=== PATIENT | male | born 1970 | race Hispanic/Latino ===

== ENCOUNTER 2016-12-29 16:33 | Inpatient (IN) | payer MEDICAID ==
[2016-12-29] MEDS ORDERED: Aspirin 325 mg EC Tablets PO ONE (16:42)
--- NOTE | 2016-12-29 16:44 | ED PDOC ---
Arrival/HPI - General Chief Complaint: Chest Pain Time Seen by Provider: 12/29/16 16:40 Historian: Patient - History of Present Illness Narrative History of Present Illness (Text): The patient is a 46yo male, no known past medical history, no use of blood thinners, presents to the emergency department for evaluation of sudden onset chest pain starting 15 minutes prior to arrival with associated cold sweats. Patient reports he was climbing up stairs at this facility when he felt a mid- sternal chest pain. Patient denies any radiation of the pain, shortness of breath or difficulty breathing. Patient offers no additional complaints. PCP: Provider in [place] Time/Duration: Prior to Arrival Symptom Onset: Sudden Symptom Course: Unchanged Context: Walking Past Medical History - Provider Review Nursing Documentation Reviewed: Yes - Past History Past History: No Previous - Infectious Disease Hx of Infectious Diseases: None - Psychiatric Hx Substance Use: No - Anesthesia Hx Anesthesia: No Family/Social History - Physician Review Nursing Documentation Reviewed: Yes Family/Social History: No Known Family HX Smoking Status: Heavy Smoker > 10 Cigarettes Daily Hx Alcohol Use: Yes Frequency of alcohol use: Socially Hx Substance Use: No Allergies/Home Meds Allergies/Adverse Reactions: Allergies No Known Allergies Allergy (Verified 12/29/16 16:35) Home Medications: Home Meds Medication Instructions Recorded Confirmed No Known Home Med 12/29/16 12/29/16 Review of Systems - Physician Review All systems were reviewed & negative as marked: Yes - Review of Systems Respiratory: absent: SOB, Other (difficulty breathing) Cardiovascular: Chest Pain Physical Exam Vital Signs Reviewed: Yes Vital Signs Temp Pulse Resp BP Pulse Ox 12/29/16 18:40 72 17 95 12/29/16 18:36 71 16 120/72 95 12/29/16 18:30 79 95 12/29/16 18:27 65 21 119/84 96 12/29/16 18:20 76 22 95 12/29/16 18:17 131/81 95 12/29/16 18:12 71 16 131/81 97 12/29/16 16:45 97.8 F 74 18 135/89 100 Temperature: Afebrile Blood Pressure: Normal Pulse: Regular Respiratory Rate: Normal Appearance: Positive for: Well-Appearing, Non-Toxic, Comfortable Pain Distress: None Mental Status: Positive for: Alert and Oriented X 3 - Systems Exam Head: Present: Atraumatic, Normocephalic Pupils: Present: PERRL Extroacular Muscles: Present: EOMI Conjunctiva: Present: Normal Mouth: Present: Moist Mucous Membranes Neck: Present: Normal Range of Motion Respiratory/Chest: Present: Clear to Auscultation, Good Air Exchange. No: Respiratory Distress, Accessory Muscle Use Cardiovascular: Present: Regular Rate and Rhythm, Normal S1, S2. No: Murmurs Abdomen: Present: Normal Bowel Sounds. No: Tenderness, Distention, Peritoneal Signs Back: Present: Normal Inspection Upper Extremity: Present: Normal Inspection. No: Cyanosis, Edema Lower Extremity: Present: Normal Inspection. No: Edema Neurological: Present: GCS=15, CN II-XII Intact, Speech Normal Skin: Present: Warm, Dry, Normal Color, Diaphoretic. No: Rashes Psychiatric: Present: Alert, Oriented x 3, Normal Insight, Normal Concentration Medical Decision Making ED Course and Treatment: Impression: STEMI based on EKG Differential Diagnosis included but are not limited to: Plan: -- Labs -- CXR -- EKG -- Reassess and disposition Progress Notes: 12/29/16 16:38 Code Heart called; consult placed with stitch separator manager decision support. 12/29/16 16:43 Heparin bolus given Plavix 600 Aspirin 325 mg - Critical Care Critical Care Minutes: 30 minutes Critical Care Time: Excluding Proc Time - Lab Interpretations Lab Results: 12/29/16 16:40 12/29/16 16:40 Lab Results 12/29/16 17:00: Blood Type Confirm A POSITIVE 12/29/16 16:40: Blood Type A POSITIVE, Antibody Screen Negative, BBK History Checked No verified bt 12/29/16 16:40: Sodium 140, Potassium 3.7, Chloride 104, Carbon Dioxide 26, Anion Gap 14, BUN 19, Creatinine 1.1, Est GFR ( Amer) > 60, Est GFR (Non- Af Amer) > 60, Random Glucose 103, Calcium 9.7, Total Bilirubin 0.9, AST 33, ALT 74 H, Alkaline Phosphatase 63, Lactate Dehydrogenase 332 L, Total Creatine Kinase 69, Troponin I < 0.01, Total Protein 7.6, Albumin 4.5, Globulin 3.1, Albumin/Globulin Ratio 1.5 12/29/16 16:40: PT 11.0, INR 1.02, APTT 24.7 12/29/16 16:40: WBC 8.0, RBC 4.99, Hgb 16.5, Hct 45.5, MCV 91.2, MCH 33.1, MCHC 36.3, RDW 12.0, Plt Count 203, MPV 10.3, Gran % 52.1, Lymph % (Auto) 38.7 H, [place] % (Auto) 7.3 H, Eos % (Auto) 1.8, Baso % (Auto) 0.1, Gran # 4.15, Lymph # 3.1, [place] # 0.6, Eos # 0.1, Baso # 0.01 - RAD Interpretation Radiology Orders: 12/29/16 16:43 CHEST PORTABLE [RAD] Stat - EKG Interpretation EKG Interpretation (Text): Sinus rhythms Rate of 66 ST Elevation 2,3 AFV and V5 V6 ST Depression V1 V2 Interpreted by ED Physician: Yes - Medication Orders Current Medication Orders: Alprazolam (Xanax) 0.25 mg PO BID PRN PRN Reason: Anxiety Stop: 01/05/17 18:13 Aspirin (Ecotrin) 81 mg PO DAILY [facility] Atorvastatin Calcium (Lipitor) 80 mg PO DIN [facility] Clopidogrel Bisulfate (Plavix) 75 mg PO DAILY [facility] Docusate Sodium (Colace) 100 mg PO BID [facility] Sodium Chloride (Sodium Chloride 0.9%) 1,000 mls @ 100 mls/hr IV .Q10H AMBROSE Stop: 12/30/16 04:14 Last Admin: 12/29/16 19:05 Dose: 100 mls/hr Eptifibatide (Integrilin) 75 mg in 100 mls @ 13.445 mls/hr IV .Q7H27M AMBROSE; 2 MCG/KG/MIN PRN Reason: Protocol Stop: 12/30/16 12:49 Metoprolol Tartrate (Lopressor) 25 mg PO Q12H AMBROSE Last Admin: 12/29/16 19:15 Dose: 25 mg Zolpidem Tartrate (Ambien) 5 mg PO HS PRN PRN Reason: Insomnia Discontinued Medications Aspirin (Ecotrin) Confirm Administered Dose 325 mg PO .STK-MED ONE Stop: 12/29/16 16:43 Last Admin: 12/29/16 16:58 Dose: Aspirin (Aspirin) 325 mg PO STAT STA Stop: 12/29/16 16:50 Last Admin: 12/29/16 16:57 Dose: 325 mg Aspirin (Ecotrin) 325 mg PO STAT STA Stop: 12/29/16 16:50 Last Admin: 12/29/16 16:58 Dose: Atropine Sulfate (Atropine) Confirm Administered Dose 1 mg .ROUTE .STK-MED ONE Stop: 12/29/16 16:48 Last Admin: 12/29/16 18:25 Dose: Clopidogrel Bisulfate (Plavix) 300 mg PO STAT STA Stop: 12/29/16 16:50 Last Admin: 12/29/16 16:58 Dose: Clopidogrel Bisulfate (Plavix) 600 mg PO STAT STA Stop: 12/29/16 16:50 Last Admin: 12/29/16 16:56 Dose: 600 mg Eptifibatide (Integrilin Bolus) Confirm Administered Dose 40 mg IVP .STK-MED ONE Stop: 12/29/16 17:19 Last Admin: 12/29/16 17:19 Dose: 31.6 mg Comments: two boluses of 7.9ml integrillin given at 1719 and 1729 Fentanyl (Fentanyl) Confirm Administered Dose 100 mcg .ROUTE .STK-MED ONE Stop: 12/29/16 17:02 Last Admin: 12/29/16 17:07 Dose: 100 mcg Comments: 50mcgs at 507p by dr. ma 50mcgs at 530p by magan sparrow rn Heparin Sodium (Porcine) (Heparin) Confirm Administered Dose 5,000 units .ROUTE .STK-MED ONE Stop: 12/29/16 16:44 Last Admin: 12/29/16 16:58 Dose: Heparin Sodium (Porcine) (Heparin) 5,000 units IVP STAT STA PRN Reason: Protocol Stop: 12/29/16 16:50 Last Admin: 12/29/16 16:57 Dose: 5,000 units Heparin Sodium (Porcine) (Heparin) 5,000 units SC STAT STA PRN Reason: Protocol Stop: 12/29/16 16:50 Last Admin: 12/29/16 16:58 Dose: Heparin Sodium (Porcine) (Heparin) Confirm Administered Dose 10,000 units .ROUTE .STK-MED ONE Stop: 12/29/16 17:04 Last Admin: 12/29/16 17:14 Dose: 2,000 units Comments: 1714pm 1000units iv by magan sparrow rn 1752 1000units iv by magan sparrow rn Heparin Sodium (Porcine) (Heparin) Confirm Administered Dose 10,000 units .ROUTE .STK-MED ONE Stop: 12/29/16 17:54 Heparin Sodium (Porcine) (Heparin 1000 Units/500 Ml Ns) Confirm Administered Dose 1,500 mls @ ud IV .STK-MED ONE Stop: 12/29/16 16:45 Nitroglycerin/Dextrose (Nitroglycerin 50 Mg/250 Ml D5w) Confirm Administered Dose 50 mg in 250 mls @ ud IV .STK-MED ONE Stop: 12/29/16 16:51 Last Admin: 12/29/16 18:31 Dose: Eptifibatide (Integrilin) Confirm Administered Dose 75 mg in 100 mls @ ud IV .STK-MED ONE Stop: 12/29/16 17:20 Last Admin: 12/29/16 17:19 Dose: 75 mg Comments: 13.8mls/hr Eptifibatide (Integrilin) 0.75 mg in 1 mls @ 7 mls/hr IV .Q9M AMBROSE PRN Reason: Protocol Eptifibatide (Integrilin) 75 mg in 100 mls @ 6.722 mls/hr IV .[id number] AMBROSE; 1 MCG/KG/MIN PRN Reason: Protocol Stop: 12/30/16 18:49 Iodixanol (Visipaque 320 Mg/Ml 100 Ml) Confirm Administered Dose 100 ml IV .STK- MED ONE Stop: 12/29/16 16:51 Iodixanol (Visipaque) Confirm Administered Dose 150 ml IV .STK-MED ONE Stop: 12/29/16 16:51 Iodixanol (Visipaque 320 Mg/Ml 200 Ml) Confirm Administered Dose 200 ml IV .STK- MED ONE Stop: 12/29/16 16:51 Iohexol (Omnipaque 350mg/Ml 50 Ml) Confirm Administered Dose 50 ml .ROUTE .STK- MED ONE Stop: 12/29/16 16:46 Iohexol (Omnipaque 350 100 Ml) Confirm Administered Dose 350 mg .ROUTE .STK-MED ONE Stop: 12/29/16 16:46 Iohexol (Omnipaque 350 150 Ml) Confirm Administered Dose 150 ml .ROUTE .STK-MED ONE Stop: 12/29/16 16:46 Lidocaine HCl (Lidocaine 2% 20ml Vial) Confirm Administered Dose 20 ml .ROUTE .STK-MED ONE Stop: 12/29/16 16:54 Last Admin: 12/29/16 17:08 Dose: 8 ml Comments: to right groin Midazolam HCl (Versed Inj) Confirm Administered Dose 2 mg .ROUTE .STK-MED ONE Stop: 12/29/16 17:02 Last Admin: 12/29/16 17:06 Dose: 2 mg Comments: 2mg given by dr ma at 1706 Phenylephrine HCl (Phenylephrine Inj) Confirm Administered Dose 10 mg .ROUTE .STK-MED ONE Stop: 12/29/16 16:50 Last Admin: 12/29/16 18:31 Dose: - Scribe Statement The provider has reviewed the documentation as recorded by the Cordell Lo Provider Cordell Attestation: All medical record entries made by the Cordell were at my direction and personally dictated by me. I have reviewed the chart and agree that the record accurately reflects my personal performance of the history, physical exam, medical decision making, and the department course for this patient. I have also personally directed, reviewed, and agree with the discharge instructions and disposition. Disposition/Present on Arrival - Present on Arrival Any Indicators Present on Arrival: No History of DVT/PE: No History of Uncontrolled Diabetes: No Urinary Catheter: No History of Decub. Ulcer: No History Surgical Site Infection Following: None - Disposition Have Diagnosis and Disposition been Completed?: Yes Diagnosis: STEMI (ST elevation myocardial infarction) Disposition: HOSPITALIZED Disposition Time: 16:38 Patient Plan: Admission Condition: CRITICAL
[2016-12-29] MEDS ORDERED: Iohexol 350mgl/ml 50 ML ONE (16:45)
[2016-12-29] MEDS ORDERED: Iohexol 350 MG/100 ML VIAL ONE (16:45)
[2016-12-29] MEDS ORDERED: Phenylephrine 10 mg/ml Inj ONE (16:49)
[2016-12-29] MEDS ORDERED: Aspirin 325 mg EC Tablets PO STA (16:49)
[2016-12-29] MEDS ORDERED: Iodixanol 320 mg/ml 150 ml Bottle IV ONE (16:50)
[2016-12-29] MEDS ORDERED: Nitroglycerin 50mg in D5W 50 MG/250 ML BOTTLE IV ONE (16:50)
[2016-12-29] MEDS ORDERED: Iodixanol 320 MG/ML 200 ML BOTTLE IV ONE (16:50)
[2016-12-29] MEDS ORDERED: Iodixanol 320 MG/ML 100 ML BOTTLE IV ONE (16:50)
[2016-12-29 16:52] LABS: BASO # 0.01 K/mm3 (0.0-2.0); BASO % 0.1 % (0.0-3.0); EOS # 0.1 (0.0-0.7); EOS % 1.8 % (1.5-5.0); GRAN # 4.15 (1.4-6.5); GRAN % 52.1 % (50.0-68.0); HEMOGLOBIN 16.5 gm/dL (14.0-18.0); LYMPH # 3.1 (1.2-3.4); LYMPH % 38.7 % (22.0-35.0); MEAN CELL VOLUME 91.2 fL (80.0-105.0); MEAN CORPUSCULAR HEMOGLOBIN 33.1 pg (25.0-35.0); MEAN CORPUSCULAR HGB CONC 36.3 g/dl (31.0-37.0); MEAN PLATELET VOLUME 10.3 fl (7.0-11.0); MONO # 0.6 (0.1-0.6); MONO % 7.3 % (1.0-6.0); PLATELET COUNT 203 10^3/uL (120.0-450.0); RBC 4.99 10^6/uL (3.5-6.1)
[2016-12-29] MEDS ORDERED: Lidocaine 2% Inj (20ml) ONE (16:53)
[2016-12-29 16:56] LABS: ALB/GLOB RATIO 1.5 (1.1-1.8); ALBUMIN 4.5 g/dL (3.0-4.8); ALT/SGPT 74 U/L (7-56); AST/SGOT 33 U/L (15-59); BLOOD UREA NITROGEN 19 mg/dL (7-21); CALCIUM 9.7 mg/dL (8.4-10.5); GFR AFRICAN-AMERICAN > 60; GFR NON-AFRICAN AMERICAN > 60
[2016-12-29 16:57] LABS: INR 1.02 (0.93-1.08); PARTIAL THROMBOPLASTIN TIME 24.7 Seconds (23.7-30.8)
[2016-12-29] MEDS ORDERED: Midazolam 2 MG/2 ML VIAL ONE (17:01)
[2016-12-29 17:08] LABS: TROPONIN I < 0.01 ng/mL
[2016-12-29] MEDS ORDERED: Eptifibatide 20 mg/10mL Inj IVP ONE (17:18)
[2016-12-29] MEDS ORDERED: Eptifibatide 0.75 mg/ml 75 MG/100 ML BOTTLE IV ONE (17:19)
--- NOTE | 2016-12-29 17:23 | RAD ---
HISTORY: chest pain COMPARISON: No prior. FINDINGS: LUNGS: The lungs are well inflated and clear. PLEURA: No significant pleural effusion identified, no pneumothorax apparent. CARDIOVASCULAR: Normal. OSSEOUS STRUCTURES: No significant abnormalities. VISUALIZED UPPER ABDOMEN: Normal. OTHER FINDINGS: None. IMPRESSION: No active pulmonary disease.
[2016-12-29] MEDS ORDERED: Eptifibatide 0.75 mg/ml 100 ML IV SCH (18:12)
[2016-12-29] MEDS ORDERED: Sodium Chloride 0.9% 1,000 ML IV SCH (18:15)
--- NOTE | 2016-12-29 18:29 | CP.CCUPN ---
CCU Subjective - Physician Review Events Since Last Encounter (Free Text): 12/29/16 18:24 46 y/o M who presented to the ER with crushing CP that came upon while he was at rest at work. He felt diaphoretic with chest heaviness and called for EMS. Upon EMS arrival they were hesitant to bring him to the ER in the likelyhood that this was GERD. In the ER he was evaluated and found to have STEMI and was rushed to the label fuser tender to meet baloon time. Given Plavix, asprin . CCU Objective - Physical Exam Head: Positive for: Atraumatic, Normocephalic Pupils: Positive for: PERRL Extroacular Muscles: Positive for: EOMI Conjunctiva: Positive for: Normal Mouth: Positive for: Moist Mucous Membranes Neck: Positive for: Normal Range of Motion Respiratory/Chest: Positive for: Clear to Auscultation, Good Air Exchange. Negative for: Respiratory Distress, Accessory Muscle Use Cardiovascular: Positive for: Regular Rate and Rhythm, Normal S1, S2. Negative for: Murmurs Abdomen: Positive for: Normal Bowel Sounds. Negative for: Tenderness, Distention, Peritoneal Signs Back: Positive for: Normal Inspection Upper Extremity: Positive for: Normal Inspection. Negative for: Cyanosis, Edema Lower Extremity: Positive for: Normal Inspection. Negative for: Edema Neurological: Positive for: GCS=15, CN II-XII Intact, Speech Normal Skin: Positive for: Warm, Dry, Normal Color, Diaphoretic. Negative for: Rashes Psychiatric: Positive for: Alert, Oriented x 3, Normal Insight, Normal Concentration - Medications Active Medications: Active Medications Generic Name Dose Route Start Last Admin Trade Name Rufinoq PRN Reason Stop Dose Admin Alprazolam 0.25 mg 12/29/16 18:12 Xanax PO 01/05/17 18:13 BID PRN Anxiety Aspirin 81 mg 12/30/16 10:00 Ecotrin PO DAILY [facility] Atorvastatin Calcium 80 mg 12/30/16 17:00 Lipitor PO DIN [facility] Clopidogrel Bisulfate 75 mg 12/30/16 10:00 Plavix PO DAILY [facility] Docusate Sodium 100 mg 12/30/16 10:00 Colace PO BID [facility] Eptifibatide 100 mls @ 0 mls/hr 12/29/16 18:12 Integrilin IV 12/30/16 12:13 .Q0M AMBROSE Protocol 1 MCG/KG/MIN Sodium Chloride 1,000 mls @ 100 mls/hr 12/29/16 18:15 Sodium Chloride 0.9% IV 12/30/16 04:14 .Q10H AMBROSE Metoprolol Tartrate 25 mg 12/29/16 18:15 Lopressor PO Q12H AMBROSE Zolpidem Tartrate 5 mg 12/29/16 22:00 Ambien PO HS PRN Insomnia Review of Systems - EENT Eyes: UNREMARKABLE Nose/Mouth/Throat: UNREMARKABLE - Cardiovascular Cardiovascular: UNREMARKABLE - Respiratory Respiratory: UNREMARKABLE - Gastrointestinal Gastrointestinal: UNREMARKABLE - Genitourinary Genitourinary: UNREMARKABLE - Musculoskeletal Musculoskeletal: UNREMARKABLE - Neurological Neurological: UNREMARKABLE Critical Care Progress Note - Ventilator Checklist PUD Prophalyxis: Yes DVT Prophylaxis: Yes Oral Care with Chlorhexidine Gluconate {CHG}: Yes Assessment/Plan - Assessment and Plan (Free Text) Assessment: 46 y/o w / STEMI S/P Cardiac Cath . 2 HIRAM in CIRC. Apparently found to have a thrombus per cardiology. Asprin, Plavix given. Integrelin started on protocol. Cp resolved. Does have family history of cardiac disease at early age 40's 20pk year smoking history , ADRIANA and possible HTN noted. High stress at work. Needs ECHO, B blockers, AceI, Asprin, Plavix, Statin . R groin check. F/U w/ Cardiology. cc time 65 min
[2016-12-29] MEDS ORDERED: Eptifibatide 0.75 mg/ml 75 MG/100 ML BOTTLE IV SCH (18:48)
--- NOTE | 2016-12-29 18:49 | CP.PCM.HP ---
<Jimenez Raymond - Last Filed: 12/29/16 18:55> History of Present Illness - History of Present Illness History of Present Illness: 46 M with no significant pmh presents to the ED with chest pain. As per & coworkers the pain first started when he was at work. He denies doing any extraneous activity at work. He looked very pale and diaphoretic and they decided to call the EMS. He states that the pain radiates to his L arm and is 10 /10 in severity. He also c/o some nausea during the episode but denies any vomiting. He denies any fever, chills, wu, dizziness, palpitations, shortnes of breath, abd pain, +N, no vomiting, urinary or bm changes. PMHx: none PSHx: none Allergies: none Social: 20 pack year smoking history, denies illicit drug use, ETOH use Family Hx: father [place] in 30s, both brothers past MIs Present on Admission - Present on Admission Any Indicators Present on Admission: No Review of Systems - Review of Systems Review of Systems: Please see HPI Past Patient History - Infectious Disease Hx of Infectious Diseases: None - Past Social History Smoking Status: Heavy Smoker > 10 Cigarettes Daily - PSYCHIATRIC Hx Substance Use: No - SURGICAL HISTORY Hx Surgeries: No - ANESTHESIA Hx Anesthesia: No Meds Allergies/Adverse Reactions: Allergies Allergy/AdvReac Type Severity Reaction Status Date / Time No Known Allergies Allergy Verified 12/29/16 16:35 Physical Exam - Head Exam Head Exam: ATRAUMATIC, NORMAL INSPECTION - Eye Exam Eye Exam: EOMI, Normal appearance - ENT Exam ENT Exam: Mucous Membranes Moist - Neck Exam Neck exam: Positive for: Normal Inspection. Negative for: Thyromegaly - Respiratory Exam Respiratory Exam: Accessory Muscle Use, NORMAL BREATHING PATTERN. absent: Rales , Rhonchi, Wheezes - Cardiovascular Exam Cardiovascular Exam: REGULAR RHYTHM, +S1, +S2 - GI/Abdominal Exam GI & Abdominal Exam: Normal Bowel Sounds, Soft. absent: Rebound, Rigid - Extremities Exam Extremities exam: Positive for: normal inspection. Negative for: pedal edema - Neurological Exam Neurological exam: Alert, CN II-XII Intact, Oriented x3 - Psychiatric Exam Psychiatric exam: Normal Affect, Normal Mood - Skin Skin Exam: Normal Color, Warm Results - Vital Signs Recent Vital Signs: Last Vital Signs Temp 97.8 F 12/29/16 16:45 Pulse 74 12/29/16 16:45 Resp 18 12/29/16 16:45 BP 135/89 12/29/16 16:45 Pulse Ox 100 12/29/16 16:45 - Labs Result Diagrams: 12/29/16 16:40 12/29/16 16:40 Assessment & Plan - Assessment and Plan (Free Text) Assessment: Patient is a 46 yo male with no significant pmh presents to the ED with chest pain found to have inf wall STEMI s/p cardiac cath POD 0. Plan: 1.Chest pain: - Received aspirin 325mg, Plavix 600mg, and heparin 5000 units in the ED - Patient went to cardiac lab scientist- 2 HIRAM in CIRC were placed - Started aspirin 81mg daily, and Plavix 75mg daily, Metoprolol 25mg BID - Started Lipitor 80mg daily - NS @ [address] Enriqueta uBtt <Bryn Pang - Last Filed: 12/29/16 20:17> Results - Vital Signs Recent Vital Signs: Last Vital Signs Temp 97.8 F 12/29/16 16:45 Pulse 68 12/29/16 20:00 Resp 16 12/29/16 20:00 BP 118/81 12/29/16 19:51 Pulse Ox 94 L 12/29/16 20:00 - Labs Result Diagrams: 12/29/16 16:40 12/29/16 16:40 Attending/Attestation - Attestation I have personally seen and examined this patient.: Yes I have fully participated in the care of the patient.: Yes I have reviewed all pertinent clinical information: Yes Notes (Text): 12/29/16 20:16 Patient was seen when he was in bed # 5 in the ICU. Agree with history, physical examination, assessment and plan.
[2016-12-29] MEDS ORDERED: EPTIFIBATIDE IV SCH (19:00)
[2016-12-29] MEDS: Eptifibatide 0.75 mg/ml 75 MG/100 ML BOTTLE IV SCH (19:38)
[2016-12-29 23:14] LABS: CK MB% 4.2 % (2.5-3.0)
[2016-12-29 23:17] LABS: TROPONIN I 19.7 ng/mL
[2016-12-30] MEDS: Eptifibatide 0.75 mg/ml 75 MG/100 ML BOTTLE IV SCH (05:00)
[2016-12-30 05:54] LABS: BASO # 0.01 K/mm3 (0.0-2.0); BASO % 0.1 % (0.0-3.0); EOS % 0.3 % (1.5-5.0); GRAN # 9.36 (1.4-6.5); HEMOGLOBIN 14.4 gm/dL (14.0-18.0); LYMPH # 1.5 (1.2-3.4); LYMPH % 12.9 % (22.0-35.0); MEAN CELL VOLUME 90.6 fL (80.0-105.0); MEAN CORPUSCULAR HEMOGLOBIN 32.4 pg (25.0-35.0); MEAN CORPUSCULAR HGB CONC 35.7 g/dl (31.0-37.0); MEAN PLATELET VOLUME 10.4 fl (7.0-11.0); MONO # 0.8 (0.1-0.6); MONO % 6.7 % (1.0-6.0); PLATELET COUNT 173 10^3/uL (120.0-450.0); RBC 4.45 10^6/uL (3.5-6.1); RED CELL DISTRIBUTION WIDTH 12.1 % (11.5-14.5); WHITE BLOOD COUNT 11.7 10^3/ul (4.5-11.0)
[2016-12-30 06:01] LABS: BLOOD UREA NITROGEN 14 mg/dL (7-21); CALCIUM 8.9 mg/dL (8.4-10.5); GFR AFRICAN-AMERICAN > 60; GFR NON-AFRICAN AMERICAN > 60
[2016-12-30 07:31] LABS: CK-MB 97.7 ng/mL (0.0-3.6)
[2016-12-30 08:33] LABS: MAGNESIUM 1.7 mg/dL (1.7-2.2)
[2016-12-30 08:58] LABS: BASO # 0.01 K/mm3 (0.0-2.0); BASO % 0.1 % (0.0-3.0); EOS % 0.3 % (1.5-5.0); GRAN # 9.38 (1.4-6.5); GRAN % 82.1 % (50.0-68.0); HEMOGLOBIN 14.5 gm/dL (14.0-18.0); LYMPH # 1.3 (1.2-3.4); LYMPH % 11.3 % (22.0-35.0); MEAN CORPUSCULAR HEMOGLOBIN 32.7 pg (25.0-35.0); MEAN CORPUSCULAR HGB CONC 35.9 g/dl (31.0-37.0); MEAN PLATELET VOLUME 10.7 fl (7.0-11.0); MONO # 0.7 (0.1-0.6); MONO % 6.2 % (1.0-6.0); PLATELET COUNT 172 10^3/uL (120.0-450.0); RBC 4.44 10^6/uL (3.5-6.1); WHITE BLOOD COUNT 11.4 10^3/ul (4.5-11.0)
--- NOTE | 2016-12-30 09:26 | CARD ---
APPROVED REPORT EKG Measurement Heart [id number] <Conclusion> Normal sinus rhythm Inferior-posterior infarct, possibly acute Lateral injury pattern ACUTE IA Abnormal ECG
[2016-12-30 11:51] VITALS: BMI 28.8
--- NOTE | 2016-12-30 11:52 | CON ---
DATE: 12/29/2016. REQUESTING PHYSICIAN: *Dr. Butt*. REASON FOR CONSULTATION: Acute myocardial infarction. HISTORY OF PRESENT ILLNESS: This is a 46-year-old man with a history of long-standing tobacco abuse as well as a family history of premature heart disease who presented to the emergency room complaining of retrosternal chest discomfort. Electrocardiogram showed evidence of ST-elevation in his inferior lateral leads. Emergency catheterization was advised. He has no prior cardiac history. He is not a diabetic or hypertensive. He is a smoker of more than a pack per day. Multiple family members have had premature heart disease. PAST MEDICAL HISTORY: Otherwise unremarkable. MEDICATIONS AT HOME: None. SOCIAL HISTORY: He is , lives with his and children. He drinks occasional alcohol. He does smoke more than a pack per day. FAMILY HISTORY: As mentioned. REVIEW OF SYSTEMS: Otherwise noncontributory except for the problems mentioned above. PHYSICAL EXAMINATION GENERAL: He is an anxious appearing, middle-aged man. VITAL SIGNS: His blood pressure of 100/60 with pulse of 88, respirations are 22. He is afebrile. HEENT: He had no JVD. CARDIOPULMONARY: PMI in normal position. LUNGS: Bilateral rhonchi. ABDOMEN: Soft and nontender with bowel sounds. EXTREMITIES: No edema. SKIN: Warm and dry. DIAGNOSTIC DATA: Initial labs are pending. Electrocardiogram; sinus rhythm with inferolateral myocardial infarction. Chest x-ray is pending. IMPRESSION: 1. Acute inferior myocardial infarction. 2. History of tobacco abuse. RECOMMENDATIONS: The patient will be brought to the emergency room for a cardiac catheterization and would undergo emergency catheterization and possible PCI. Further recommendation will be based on those results. Ahmet Alvarado MD MTDLiam
[2016-12-30 13:39] LABS: CK MB% 3.5 % (2.5-3.0); CK-MB 86.3 ng/mL (0.0-3.6)
--- NOTE | 2016-12-30 18:03 | CARDCATH ---
PROCEDURE DATE: 12/29/2016 HISTORY OF PRESENT ILLNESS: This is a 46-year-old man with a strong family history of premature heart disease as well as history of tobacco abuse. He presented to the emergency room with chest pain and ST elevations inferiorly. Emergency catheterization was advised. INDICATION: Acute inferior myocardial infarction. FINDINGS: Hemodynamically aortic pressure was 100/60 with left ventricular pressure of 100/16. CORONARY ANATOMY: 1. The left main stem was large and normal. 2. Left anterior descending artery and its branches had mild irregularities. 3. Left circumflex was the dominant vessel and was large and extremely patulous. The mid and distal vessel were filled with extensive amount of thrombus. Distal flow was not seen at ALLIE grade 0 flow was present. 4. The right coronary artery was moderate size and not dominant. LEFT VENTRICULOGRAPHY: A left ventriculogram was performed in the EVANS projection revealing evidence of diaphragmatic hypokinesis with an ejection fraction of 45%. CORONARY INTERVENTION: 1. Given the above findings, attempted PCI of the left circumflex artery was then performed. ACT was obtained prior to initiating the procedure and ACT was 206 seconds. An additional 1000 units of heparin was administered. The lesion in the left circumflex artery was successfully closed with the use of a [place] wire. Over the wire an [place] extraction catheter was advanced and manual thrombectomy performed. A moderate amount of thrombus was obtained. The catheter was then withdrawn and repeat angiography showed no evidence of distal flow again. Following this, a 2.5 x 15 mm balloon was taken and advanced into the distal circumflex. Multiple low pressure inflations were performed in what appeared to be the left posterior descending artery extending back into the mid circumflex. Again, antegrade flow was not established. IV Integrilin was initiated. Another pass was made with a thrombectomy catheter with mild degree of thrombus returned. 2. Again, the 2.5 mm balloon was advanced into the left posterior descending artery and several inflations performed. There was no significant improvement in the distal flow. Following this, a 300 mm ChoICE PT Extra Support Wire was advanced into the left posterior descending artery. Over this wire, a 2.5 mm balloon was advanced. The ChoICE PT Wire was removed and contrast was injected through the central lumen of the balloon. This confirmed that the balloon was in the distal left PDA. The balloon was gradually withdrawn and multiple inflations performed. There did appear to be a significant lesion in the origin of the left PDA. The balloon catheter was then withdrawn. Following this a 2.75 x 14 mm Resolute drug-eluting stent was advanced into the proximal segment of left PDA and inflated to 14 atmospheres. Following this, there appeared to be a gap of disease vessel present between the stented segment and the distal circumflex artery. This was treated with the placement of a 3.0 x 9 mm Resolute drug-eluting stent. An inflation was performed at the area of overlap as well with the same balloon to 14 atmospheres. Following this intervention, there appeared to be ALLIE grade 1 flow. There was no evidence of any further high-grade stenosis and therefore, the balloon catheters and wires were removed. IV Integrilin will be continued for 18 hours. Right femoral arteriogram was performed in the EVANS projection. This revealed no evidence of significant disease and appropriate liver arterial puncture. The puncture site was then closed with filament of an of AngioSeal device. CONCLUSION: 1. Acute inferior myocardial infarction due to distal left circumflex artery occlusion. 2. Successful thrombectomy of left circumflex artery. 3. PCI of distal left circumflex and proximal left posterior descending artery with Resolute drug-eluting stents. RECOMMENDATIONS: IV Integrilin will be continued for at least 18 hours. Aspirin, statin, Plavix, and beta-kasie therapy will be initiated. Serial enzymes and electrocardiograms will be obtained. An echocardiogram will be obtained as well. Smoking abstinence was strongly encouraged. Further recommendation will be based upon all the above. Ahmet Alvarado MD cc: MTDD
--- NOTE | 2016-12-30 20:22 | CP.PCM.PN ---
<JESÚS MITCHELL - Last Filed: 12/30/16 20:19> Subjective - Date & Time of Evaluation Date of Evaluation: 12/30/16 Time of Evaluation: 16:40 - Subjective Subjective: Medicine Progress Note: Pt seen and assessed at bedside. Pt has no new complaints but reports mild chest tenderness, which he states is minimal compared to his initial presentation. Pt denies headaches, fever, shortness of breath, cough, palpitations, nausea, vomiting or abdominal pain. Objective - Vital Signs/Intake and Output Vital Signs (last 24 hours): Temp Pulse Resp BP Pulse Ox 99 F 69 25 H 119/75 95 12/30/16 18:12 12/30/16 18:30 12/30/16 18:30 12/30/16 17:25 12/30/16 17:40 Intake and Output: 12/30/16 12/31/16 18:59 06:59 Intake Total 1187 Output Total 1450 Balance -263 - Medications Medications: Current Medications Alprazolam (Xanax) 0.25 mg PO BID PRN PRN Reason: Anxiety Stop: 01/05/17 18:13 Aspirin (Ecotrin) 81 mg PO DAILY [facility] Last Admin: 12/30/16 10:36 Dose: 81 mg Atorvastatin Calcium (Lipitor) 80 mg PO DIN [facility] Last Admin: 12/30/16 17:27 Dose: 80 mg Clopidogrel Bisulfate (Plavix) 75 mg PO DAILY [facility] Last Admin: 12/30/16 10:35 Dose: 75 mg Docusate Sodium (Colace) 100 mg PO BID [facility] Last Admin: 12/30/16 17:27 Dose: 100 mg Losartan Potassium (Cozaar) 25 mg PO DAILY [facility] Last Admin: 12/30/16 10:35 Dose: 25 mg Metoprolol Tartrate (Lopressor) 25 mg PO Q12H [facility] Last Admin: 12/30/16 17:24 Dose: 25 mg Zolpidem Tartrate (Ambien) 5 mg PO HS PRN PRN Reason: Insomnia Last Admin: 12/30/16 00:05 Dose: 5 mg - Labs Labs: 12/30/16 08:00 12/30/16 05:30 PT 11.0 Seconds (9.9-11.8) 12/29/16 16:40 INR 1.02 (0.93-1.08) 12/29/16 16:40 APTT 24.7 Seconds (23.7-30.8) 12/29/16 16:40 - Constitutional Appears: No Acute Distress - Head Exam Head Exam: NORMAL INSPECTION, NORMOCEPHALIC - Eye Exam Eye Exam: EOMI, Normal appearance - ENT Exam ENT Exam: Mucous Membranes Moist, Normal Exam - Neck Exam Neck Exam: Full ROM - Respiratory Exam Respiratory Exam: Clear to Ausculation Bilateral, NORMAL BREATHING PATTERN. absent: Rales, Rhonchi, Wheezes - Cardiovascular Exam Cardiovascular Exam: REGULAR RHYTHM, RRR, +S1, +S2. absent: Murmur - GI/Abdominal Exam GI & Abdominal Exam: Normal Bowel Sounds. absent: Tenderness - Extremities Exam Extremities Exam: absent: Calf Tenderness, Pedal Edema - Neurological Exam Neurological Exam: Alert, Awake, Oriented x3 - Psychiatric Exam Psychiatric exam: Normal Affect, Normal Mood - Skin Skin Exam: Dry, Intact, Normal Color, Warm Assessment and Plan - Assessment and Plan (Free Text) Assessment: 46 year old male with past medical history significant for 20 year pack history with family hx of MS's presents with crushing chest pain, found to have STEMI. Plan: 1. STEMI of inf wall s/p cardiac cath (12/29) - cardiology following, appreciate all recs - cardiac cath w/ 2 HIRAM placed in CIRC - started on ASA, lipitor, plavix, cozaar and metoprolol - tobacco cessation advised - will cont to f/u with cardiology as OP - heart healthy low cholesterol diet 2. Anxiety - xanax PRN 3. Insomnia - ambien PRN 4. GI/DVT prophylaxis - protonix/scd's Patient seen and case discussed in detail with attending, Dr. Levin. <Poonam LANDIN,[facility] - Last Filed: 01/09/17 11:42> Objective - Vital Signs/Intake and Output Vital Signs (last 24 hours): Temp Pulse Resp BP Pulse Ox 98.8 F 87 20 111/70 93 L 01/02/17 05:49 01/02/17 10:00 01/02/17 05:49 01/02/17 09:32 01/02/17 05:49 - Labs Labs: 01/02/17 06:00 01/02/17 06:00 PT 11.0 Seconds (9.9-11.8) 12/29/16 16:40 INR 1.02 (0.93-1.08) 12/29/16 16:40 APTT 24.7 Seconds (23.7-30.8) 12/29/16 16:40 Attending/Attestation - Attestation I have personally seen and examined this patient.: Yes I have fully participated in the care of the patient.: Yes I have reviewed all pertinent clinical information, including history, physical exam and plan: Yes Notes (Text): 01/09/17 11:40 Patient was seen and examined with medical assembly. Agreed with resident assessment and plan. 46 yrs old male , SP STEMI and Circumflex stent. He is still having intermittent chest pain, he is on integrin drip, EKG no new changes, will follow up Echo, we will continue monitoring. Management plan was discussed in detail with patient Education was provided.
--- NOTE | 2016-12-31 05:37 | CARD ---
APPROVED REPORT EXAM: Two-dimensional and M-mode echocardiogram with Doppler and color Doppler. INDICATION Status/Post IL 2D DIMENSIONS Left Atrium (2D)3.8 (1.6-4.0cm)IVSd1.3 (0.7-1.1cm) LVDd4.4 (3.9-5.9cm)PWd1.0 (0.7-1.1cm) LVDs3.1 (2.5-4.0cm)FS (%) 28.6 % LVEF (%)55.4 (>50%) M-Mode DIMENSIONS Aortic Root3.40 (2.2-3.7cm)Aortic Cusp Exc.2.00 (1.5-2.0cm) Aortic Valve AoV Peak Becirhnv310.0cm/Susan Peak GR.7mmHg Mitral Valve MV E Jnmeeqov765.0cm/sMV A Kpohzwqf55.3cm/sE/A ratio1.7 TDI E/Lateral E'0.0E/Medial E'0.0 Tricuspid Valve TR Peak Cnwhdusw226dp/sRAP [id number] Peak Gr.24mmHg [id number] LEFT VENTRICLE The left ventricle is normal size. Mild basal septal hypertrophy noted. The left ventricular function is normal. The left ventricular ejection fraction is within the normal range. Mild basal inferolateral hypokinesis. RIGHT VENTRICLE The right ventricle is normal size. The right ventricular systolic function is normal. ATRIA The left atrium size is normal. The right atrium size is normal. The interatrial septum is intact with no evidence for an atrial septal defect. AORTIC VALVE The aortic valve is normal in structure. No aortic regurgitation is present. There is no aortic valvular stenosis. MITRAL VALVE The mitral valve is normal in structure. Mitral regurgitation is trace. TRICUSPID VALVE The tricuspid valve is normal in structure. There is mild tricuspid regurgitation. PULMONIC VALVE The pulmonary valve is normal in structure. GREAT VESSELS The aortic root is normal in size. The IVC is normal in size and collapses >50% with inspiration. PERICARDIAL EFFUSION There is no pleural effusion. There is no pericardial effusion. <Conclusion> Normal chamber size. Normal LV systolic function despite mild basal inferolateral hypokinesis. Mild TR.
--- NOTE | 2016-12-31 10:23 | CARD ---
APPROVED REPORT EKG Measurement Heart [id number] ID [id number] <Conclusion> Poor data quality, interpretation may be adversely affected Normal sinus rhythm Left axis deviation Possible Lateral infarct, age undetermined Inferior-posterior infarct, age undetermined Abnormal ECG
--- NOTE | 2016-12-31 11:31 | CP.PCM.PN ---
<JESÚS MITCHELL - Last Filed: 12/31/16 19:55> Subjective - Date & Time of Evaluation Date of Evaluation: 12/31/16 Time of Evaluation: 07:00 - Subjective Subjective: Medicine Progress Note: Pt was seen and assessed at bedside. Pt had no new complaints this morning. He states that his chest continues to be "sore" and that taking a deep breath is painful. Pt denies headche, changes in vision, palpitations, cough, N/V, or abdominal pain. Objective - Vital Signs/Intake and Output Vital Signs (last 24 hours): Temp Pulse Resp BP Pulse Ox 100 F H 86 20 121/74 93 L 12/31/16 08:12 12/31/16 10:50 12/31/16 10:20 12/31/16 09:56 12/31/16 06:40 Intake and Output: 12/31/16 12/31/16 06:59 18:59 Intake Total 400 Output Total 1200 Balance -800 - Medications Medications: Current Medications Alprazolam (Xanax) 0.25 mg PO BID PRN PRN Reason: Anxiety Stop: 01/05/17 18:13 Aspirin (Ecotrin) 81 mg PO DAILY [facility] Last Admin: 12/31/16 09:53 Dose: 81 mg Atorvastatin Calcium (Lipitor) 80 mg PO DIN [facility] Last Admin: 12/30/16 17:27 Dose: 80 mg Clopidogrel Bisulfate (Plavix) 75 mg PO DAILY [facility] Last Admin: 12/31/16 09:53 Dose: 75 mg Docusate Sodium (Colace) 100 mg PO BID [facility] Last Admin: 12/31/16 09:53 Dose: 100 mg Losartan Potassium (Cozaar) 25 mg PO DAILY [facility] Last Admin: 12/31/16 09:56 Dose: 25 mg Metoprolol Tartrate (Lopressor) 25 mg PO Q12H [facility] Last Admin: 12/31/16 09:56 Dose: 25 mg Pantoprazole Sodium (Protonix Inj) 40 mg IVP DAILY [facility] Last Admin: 12/31/16 09:53 Dose: 40 mg Zolpidem Tartrate (Ambien) 10 mg PO HS PRN; Protocol PRN Reason: Insomnia Last Admin: 12/30/16 22:53 Dose: 10 mg - Labs Labs: 12/30/16 08:00 12/30/16 05:30 PT 11.0 Seconds (9.9-11.8) 12/29/16 16:40 INR 1.02 (0.93-1.08) 12/29/16 16:40 APTT 24.7 Seconds (23.7-30.8) 12/29/16 16:40 - Constitutional Appears: No Acute Distress - Head Exam Head Exam: NORMAL INSPECTION - Eye Exam Eye Exam: EOMI, Normal appearance - ENT Exam ENT Exam: Mucous Membranes Moist, Normal Exam - Neck Exam Neck Exam: Full ROM - Respiratory Exam Respiratory Exam: Clear to Ausculation Bilateral, NORMAL BREATHING PATTERN. absent: Rales, Rhonchi, Wheezes, Respiratory Distress - Cardiovascular Exam Cardiovascular Exam: REGULAR RHYTHM, +S1, +S2. absent: Murmur - GI/Abdominal Exam GI & Abdominal Exam: Normal Bowel Sounds. absent: Distended, Guarding, Tenderness - Extremities Exam Extremities Exam: Full ROM. absent: Calf Tenderness, Pedal Edema - Neurological Exam Neurological Exam: Alert, Awake, Normal Gait, Oriented x3 - Psychiatric Exam Psychiatric exam: Normal Affect, Normal Mood - Skin Skin Exam: Dry, Intact, Normal Color, Warm - Additional Findings Additional findings: Catheter insertion site with minimal erythema, no fluctuance and no drainage. Dressing is clean, dry and intact. Assessment and Plan - Assessment and Plan (Free Text) Assessment: 46 year old male with a past medical history significant for a 20 year pack smoking history with a family history of [place]'s presents with crushing chest pain , found to have STEMI, and taken to cardiac quality assurance qa lab analyst for two HIRAM in circ. Plan: 1. STEMI of inf wall s/p cardiac cath (12/29) - cardiology following, appreciate all recs - cardiac cath with 2 HIRAM placed in CIRC - ECHO showed an EF of 55.4%, normal chamber size, normal LV systolic despite mild basal inferolateral hypokinesis and mild TR. - ECG showed NSR, left axis deviation, age indeterminate lateral and inferior- posterior infarcts. - continue ASA, lipitor, plavix, cozaar and metoprolol - transferred to remote telemetry floor - tobacco cessation advised - will cont to f/u with cardiology as OP - heart healthy low cholesterol diet 2. Dyspnea - likely due to musculoskeletal chest tenderness - Incentive Spirometry ordered 3. Anxiety - xanax PRN 4. Insomnia - ambien PRN - increased dosage from 5mg to 10mg, as this is what the patient takes at home 5. GI/DVT prophylaxis - protonix/scd's Patient seen and case discussed in detail with attending, Dr. Hooks. <Rebeca Hooks - Last Filed: 01/01/17 15:15> Objective - Vital Signs/Intake and Output Vital Signs (last 24 hours): Temp Pulse Resp BP Pulse Ox 98.4 F 88 20 109/77 92 L 01/01/17 11:54 01/01/17 11:54 01/01/17 11:54 01/01/17 11:54 01/01/17 05:47 Intake and Output: 01/01/17 01/01/17 06:59 18:59 Intake Total 360 Balance 360 - Medications Medications: Current Medications Acetaminophen (Tylenol 325mg Tab) 650 mg PO Q6H PRN PRN Reason: Fever >100.4 F Last Admin: 01/01/17 14:06 Dose: 650 mg Alprazolam (Xanax) 0.25 mg PO BID PRN PRN Reason: Anxiety Stop: 01/05/17 18:13 Last Admin: 12/31/16 20:30 Dose: 0.25 mg Aspirin (Ecotrin) 81 mg PO DAILY [facility] Last Admin: 01/01/17 09:36 Dose: 81 mg Atorvastatin Calcium (Lipitor) 80 mg PO DIN [facility] Last Admin: 12/31/16 17:18 Dose: 80 mg Clopidogrel Bisulfate (Plavix) 75 mg PO DAILY [facility] Last Admin: 01/01/17 09:36 Dose: 75 mg Docusate Sodium (Colace) 100 mg PO BID [facility] Last Admin: 01/01/17 09:36 Dose: 100 mg Losartan Potassium (Cozaar) 25 mg PO DAILY [facility] Last Admin: 01/01/17 09:36 Dose: 25 mg Metoprolol Tartrate (Lopressor) 25 mg PO Q12H [facility] Last Admin: 01/01/17 05:24 Dose: 25 mg Oxycodone/Acetaminophen (Percocet 5/325 Mg Tab) 1 tab PO Q6H PRN PRN Reason: Pain, moderate (4-7) Stop: 01/03/17 16:03 Last Admin: 01/01/17 05:24 Dose: 1 tab Pantoprazole Sodium (Protonix Ec Tab) 40 mg PO 0600 [facility] Last Admin: 01/01/17 05:24 Dose: 40 mg Zolpidem Tartrate (Ambien) 10 mg PO HS PRN; Protocol PRN Reason: Insomnia Last Admin: 12/31/16 23:02 Dose: 10 mg - Labs Labs: 01/01/17 06:30 01/01/17 06:30 PT 11.0 Seconds (9.9-11.8) 12/29/16 16:40 INR 1.02 (0.93-1.08) 12/29/16 16:40 APTT 24.7 Seconds (23.7-30.8) 12/29/16 16:40 Attending/Attestation - Attestation I have personally seen and examined this patient.: Yes I have fully participated in the care of the patient.: Yes I have reviewed all pertinent clinical information, including history, physical exam and plan: Yes Notes (Text): 01/01/17 15:10 attending note; Patient seen and examined with resident in ICU. Patient is complaining chest soreness. Mild shortness of breath. Denies any chest pain. Tolerating diet. Ambulating fine. Patient is a 46-year-old admitted with acute ST elevation [place] status post cardiac cath and stent placement. cardiology note reviewed. Started on Percocet. mild leukocytosis/low-grade temperature. Continue Tylenol. Patient is aseptic and nontoxic. active smoking; smoking cessation is strongly advised. follow-up with cardiology for discharge plan. follow-up with PMD in [place]. Follow-up with Cardiology DR. Black upon discharge.
--- NOTE | 2016-12-31 14:01 | PN ---
DATE: 12/31/2016 SUBJECTIVE: The patient is seen lying in bed in the ICU. He has had intermittent chest discomfort. His pain is worse when lying down and also with deep inspiration. This has made him somewhat concerned. His troponin from yesterday peaked at 48.0. His electrocardiogram shows evidence of an inferior wall myocardial infarction pattern. MEDICATIONS: His current medications include: 1. Cozaar 25 mg daily. 2. Ecotrin. 3. Lipitor 80 mg daily. 4. Metoprolol 25 mg b.i.d. 5. Plavix 75 mg daily. 6. Protonix 40 mg daily. 7. Xanax p.r.n. 8. Ambien. PHYSICAL EXAMINATION GENERAL: He is an anxious-appearing middle-aged man. VITAL SIGNS: His blood pressure is 106/58 with a pulse of 80 and sinus, respirations are 16. He currently has temperature 99.5 with a peak temperature of 100.1 yesterday. NECK: No JVD. CARDIOPULMONARY: PMI normal position. No pathological murmur or gallops noted. No rub is heard. LUNGS: Clear to auscultation and percussion. ABDOMEN: The abdomen is soft, nontender. Normal active bowel sounds. EXTREMITIES: No edema. LABORATORY DATA: Morning blood work is pending. Echocardiogram was reviewed and shows evidence of normal LV systolic function despite mild basal inferolateral hypokinesis and no pericardial effusion is seen.. RECOMMENDATIONS: His current management should continue. Aspirin, Plavix, statin, beta kasie therapy, and angiotensin receptor kasie treatment is advised. Continued smoking abstinence was discussed. He can be transferred to telemetry today. Followup enzymes will be checked today in the morning. He was reassured that his current pain appears to be most consistent with post myocardial infarction pericarditis and not due to recurrent ischemia. Increased ambulation was advised. Discharge home in the next 24 to 48 hours will be appropriate assuming he remains stable. We will follow him as needed. Ahmet Alvarado MD
[2016-12-31] MEDS: Oxycodone/Acetaminophen 5/325 mg Tab PO PRN (16:18)
[2017-01-01 00:12] VITALS: RESP 20
[2017-01-01] MEDS: Pantoprazole 40 mg EC Tab PO SCH (05:24)
[2017-01-01] MEDS: Oxycodone/Acetaminophen 5/325 mg Tab PO PRN (05:24)
[2017-01-01 07:20] LABS: BASO # 0.01 K/mm3 (0.0-2.0); BASO % 0.1 % (0.0-3.0); EOS % 0.2 % (1.5-5.0); GRAN # 11.08 (1.4-6.5); GRAN % 80.1 % (50.0-68.0); HEMOGLOBIN 14.8 gm/dL (14.0-18.0); LYMPH # 1.5 (1.2-3.4); LYMPH % 10.6 % (22.0-35.0); MEAN CELL VOLUME 91.6 fL (80.0-105.0); MEAN CORPUSCULAR HEMOGLOBIN 32.7 pg (25.0-35.0); MEAN CORPUSCULAR HGB CONC 35.7 g/dl (31.0-37.0); MEAN PLATELET VOLUME 10.9 fl (7.0-11.0); MONO # 1.2 (0.1-0.6); PLATELET COUNT 163 10^3/uL (120.0-450.0); RBC 4.53 10^6/uL (3.5-6.1); RED CELL DISTRIBUTION WIDTH 12.4 % (11.5-14.5); WHITE BLOOD COUNT 13.8 10^3/ul (4.5-11.0)
[2017-01-01 07:23] LABS: ALB/GLOB RATIO 1.2 (1.1-1.8); ALBUMIN 3.9 g/dL (3.0-4.8); ALT/SGPT 73 U/L (7-56); AST/SGOT 98 U/L (15-59); BLOOD UREA NITROGEN 10 mg/dL (7-21); CALCIUM 9.2 mg/dL (8.4-10.5); GFR AFRICAN-AMERICAN > 60; GFR NON-AFRICAN AMERICAN > 60
--- NOTE | 2017-01-01 07:59 | CP.PCM.PN ---
Subjective - Date & Time of Evaluation Date of Evaluation: 01/01/17 Time of Evaluation: 07:00 - Subjective Subjective: Stable on 2R. Had pleuritic CP last night, different from chest pain on admission. "Sore" Difficult to take deep breath. Slept in chair. Percocet helped. He feels better this AM. present. No SOB now. V/S noted. RSR. PE: Lungs: clear Cor.: S1S2. No rub appreciated Abd.: soft Ext.: no edema Neuro.: alert labs 12/31 noted. WBC= 13,800, trop.= 28.3 ECG's, echo and cines reviewed. Objective - Vital Signs/Intake and Output Vital Signs (last 24 hours): Temp Pulse Resp BP Pulse Ox 100.2 F H 100 H 20 115/79 92 L 01/01/17 05:47 01/01/17 05:47 01/01/17 05:47 01/01/17 05:47 01/01/17 05:47 Intake and Output: 01/01/17 01/01/17 06:59 18:59 Intake Total 360 Balance 360 - Medications Medications: Current Medications Acetaminophen (Tylenol 325mg Tab) 650 mg PO Q6H PRN PRN Reason: Fever >100.4 F Last Admin: 12/31/16 23:06 Dose: 650 mg Alprazolam (Xanax) 0.25 mg PO BID PRN PRN Reason: Anxiety Stop: 01/05/17 18:13 Last Admin: 12/31/16 20:30 Dose: 0.25 mg Aspirin (Ecotrin) 81 mg PO DAILY [facility] Last Admin: 12/31/16 09:53 Dose: 81 mg Atorvastatin Calcium (Lipitor) 80 mg PO DIN [facility] Last Admin: 12/31/16 17:18 Dose: 80 mg Clopidogrel Bisulfate (Plavix) 75 mg PO DAILY [facility] Last Admin: 12/31/16 09:53 Dose: 75 mg Docusate Sodium (Colace) 100 mg PO BID [facility] Last Admin: 12/31/16 17:18 Dose: 100 mg Losartan Potassium (Cozaar) 25 mg PO DAILY [facility] Last Admin: 12/31/16 09:56 Dose: 25 mg Metoprolol Tartrate (Lopressor) 25 mg PO Q12H [facility] Last Admin: 01/01/17 05:24 Dose: 25 mg Oxycodone/Acetaminophen (Percocet 5/325 Mg Tab) 1 tab PO Q6H PRN PRN Reason: Pain, moderate (4-7) Stop: 01/03/17 16:03 Last Admin: 01/01/17 05:24 Dose: 1 tab Pantoprazole Sodium (Protonix Ec Tab) 40 mg PO 0600 [facility] Last Admin: 01/01/17 05:24 Dose: 40 mg Zolpidem Tartrate (Ambien) 10 mg PO HS PRN; Protocol PRN Reason: Insomnia Last Admin: 12/31/16 23:02 Dose: 10 mg - Labs Labs: 01/01/17 06:30 01/01/17 06:30 PT 11.0 Seconds (9.9-11.8) 12/29/16 16:40 INR 1.02 (0.93-1.08) 12/29/16 16:40 APTT 24.7 Seconds (23.7-30.8) 12/29/16 16:40 Assessment and Plan - Assessment and Plan (Free Text) Assessment: Acute NE with thrombosis of dom. C.A. S/P thrombectomy and PCI with HIRAM's x2 12/29/16 Smoker, now quitting FH of CAD Plan: Await AM labs Continue on tel. Continue current cardiac meds. Plavix minimum one year. Percocet PRN severe pain. OOB ad shara. Smoking Cessation d/w him: He agrees. Decline tonny. patch at this time.
--- NOTE | 2017-01-01 09:11 | PN ---
DATE: 12/30/2016 SUBJECTIVE: The patient seen lying bed on ICU. He is comfortable. He did have some chest discomfort overnight, this appeared worse with movement and deep inspiration. His troponin consuelo to 19.7 and repeat this morning was 36.1, electrocardiogram is pending. CURRENT MEDICATIONS: Include; 1. IV Integrilin. 2. Aspirin. 3. Plavix. 4. Lipitor 80 mg daily. 5. Metoprolol 25 mg q. 12 hours. 6. Xanax p.r.n. OBJECTIVE: GENERAL: He is an anxious-appearing middle aged man. VITAL SIGNS: His blood pressure is 122/64 with a pulse of 76, respirations of 14, he is afebrile. HEENT: No JVD. CHEST: Diffuse scattered rhonchi. HEART: PMI in normal position. No pathological noted. ABDOMEN: Soft, nontender, normoactive bowel sounds. EXTREMITIES: No edema. Right groin puncture site is clean and dry with no evidence of significant hematoma. DIAGNOSTIC DATA: Latest troponin 36.1 with a CK of 2472 and 4.0% MB fraction. Potassium 3.8. BUN and creatinine 14 and 0.8. Hemoglobin and hematocrit of 14.5 and 40.4 with a white count of 11.4 and platelet count 172,000. Cholesterol is 166 with an HDL of 31, LDL 88 and triglycerides of 316. IMPRESSION: 1. Status post large inferior posterior wall myocardial infarction due to occluded and severely thrombosed dominant left circumflex artery, status post emergency percutaneous coronary intervention. Currently clinically stable. 2. History of tobacco abuse. 3. Family history of premature heart disease. 4. Overweight. RECOMMENDATIONS: Follow up serial enzymes will be planned. IV Integrilin will be continued for total of 18 hours. An echocardiogram is pending and will be reviewed. Serial electrocardiograms will be preformed as well. Smoking abstinence is strongly encouraged. His current medications will be continued for now. An angiotensin receptor kasie will be added as his ejection fraction is likely somewhat diminished given the size of his infarct. He can be gotten out of bed today. Ambulation will be initiated tomorrow. Further plans will be made based upon his clinical course. Lengthy discussion was had with him and his family regarding the recent events, implications of his infarct, and his need for aggressive risk factor control and lifestyle modification going forward. We will follow along as needed. Ahmet Alvarado MD [facility] # [id number]
--- NOTE | 2017-01-01 09:13 | PN ---
SUBJECTIVE: The patient is resting at bedside with family at bedside as well. No complaints of chest pain. No fever, chills, nausea, vomiting. No shortness of breath, cough, wheezing, or congestion. The patient is doing very well this morning. PHYSICAL EXAMINATION: VITAL SIGNS: His temperature is 99.5, his pulse is 83, respirations are 24 and his BP is 106/58. SKIN: Warm and dry. HEENT: Head is atraumatic, normocephalic. Eyes are reactive to light. Ear, nose, and throat seem to be within normal limits. NECK: Supple. No JVD. No thyroid enlargement. No lymph nodes. HEART: Has regular rate and rhythm. Normal S1, S2. LUNGS: Reveal good breath sounds bilaterally. ABDOMEN: Soft, nontender. Normal bowel sounds. No organomegaly noted. GENITALIA: Deferred. RECTAL: Deferred. MUSCULOSKELETAL: No joint deformities. EXTREMITIES: Reveal no significant lower extremity edema. NEUROLOGICAL: He seems to be grossly intact. As far as his laboratories, the patient's latest troponin is 28.3. Other labs are pending. IMPRESSION: This patient has a few myocardial infraction with coronary artery disease requiring 2 stents placed. The patient has a history of obstructive sleep apnea as well as a questionable history of hypertension. PLAN: We will continue with the patient's Protonix as well as Plavix, Lopressor, Lipitor, Ecotrin, and Cozaar. The patient is doing . The patient is very stable and will be transferred to telemetry and we will continue to treat aggressively along with the other consultants and the primary care doctor. Santiago Coles MD [facility]
[2017-01-01] MEDS ORDERED: Potassium Chloride 10 mEq ER Tab PO STA (09:21)
[2017-01-01] MEDS ORDERED: Potassium Chloride 20 mEq ER Tab PO STA (12:30)
--- NOTE | 2017-01-01 15:08 | CP.PCM.PN ---
<JESÚS MITCHELL - Last Filed: 01/01/17 15:04> Subjective - Date & Time of Evaluation Date of Evaluation: 01/01/17 Time of Evaluation: 07:30 - Subjective Subjective: Medicine Progress Note: Pt was seen and assessed at bedside. Pt had no new complaints this morning. He reported that he had trouble sleeping last night d/t chest soreness. He describes this soreness as increasing throughout the day, and in the evening he can "barely take a breath". He required pain medication and anxiety medication to sleep last night. Pt denies headche, changes in vision, palpitations, cough, N/V, or abdominal pain. Objective - Vital Signs/Intake and Output Vital Signs (last 24 hours): Temp Pulse Resp BP Pulse Ox 98.4 F 88 20 109/77 92 L 01/01/17 11:54 01/01/17 11:54 01/01/17 11:54 01/01/17 11:54 01/01/17 05:47 Intake and Output: 01/01/17 01/01/17 06:59 18:59 Intake Total 360 Balance 360 - Medications Medications: Current Medications Acetaminophen (Tylenol 325mg Tab) 650 mg PO Q6H PRN PRN Reason: Fever >100.4 F Last Admin: 01/01/17 14:06 Dose: 650 mg Alprazolam (Xanax) 0.25 mg PO BID PRN PRN Reason: Anxiety Stop: 01/05/17 18:13 Last Admin: 12/31/16 20:30 Dose: 0.25 mg Aspirin (Ecotrin) 81 mg PO DAILY [facility] Last Admin: 01/01/17 09:36 Dose: 81 mg Atorvastatin Calcium (Lipitor) 80 mg PO DIN [facility] Last Admin: 12/31/16 17:18 Dose: 80 mg Clopidogrel Bisulfate (Plavix) 75 mg PO DAILY [facility] Last Admin: 01/01/17 09:36 Dose: 75 mg Docusate Sodium (Colace) 100 mg PO BID [facility] Last Admin: 01/01/17 09:36 Dose: 100 mg Losartan Potassium (Cozaar) 25 mg PO DAILY [facility] Last Admin: 01/01/17 09:36 Dose: 25 mg Metoprolol Tartrate (Lopressor) 25 mg PO Q12H [facility] Last Admin: 01/01/17 05:24 Dose: 25 mg Oxycodone/Acetaminophen (Percocet 5/325 Mg Tab) 1 tab PO Q6H PRN PRN Reason: Pain, moderate (4-7) Stop: 01/03/17 16:03 Last Admin: 01/01/17 05:24 Dose: 1 tab Pantoprazole Sodium (Protonix Ec Tab) 40 mg PO 0600 AMBROSE Last Admin: 01/01/17 05:24 Dose: 40 mg Zolpidem Tartrate (Ambien) 10 mg PO HS PRN; Protocol PRN Reason: Insomnia Last Admin: 12/31/16 23:02 Dose: 10 mg - Labs Labs: 01/01/17 06:30 01/01/17 06:30 PT 11.0 Seconds (9.9-11.8) 12/29/16 16:40 INR 1.02 (0.93-1.08) 12/29/16 16:40 APTT 24.7 Seconds (23.7-30.8) 12/29/16 16:40 - Constitutional Appears: No Acute Distress - Head Exam Head Exam: NORMAL INSPECTION - Eye Exam Eye Exam: EOMI, Normal appearance - ENT Exam ENT Exam: Mucous Membranes Moist, Normal Exam - Neck Exam Neck Exam: Full ROM - Respiratory Exam Respiratory Exam: Clear to Ausculation Bilateral, NORMAL BREATHING PATTERN. absent: Rales, Rhonchi, Wheezes, Respiratory Distress - Cardiovascular Exam Cardiovascular Exam: REGULAR RHYTHM, +S1, +S2. absent: Murmur - GI/Abdominal Exam GI & Abdominal Exam: Normal Bowel Sounds. absent: Tenderness - Extremities Exam Extremities Exam: absent: Calf Tenderness, Pedal Edema - Neurological Exam Neurological Exam: Alert, Awake, Normal Gait, Oriented x3 - Psychiatric Exam Psychiatric exam: Normal Affect, Normal Mood - Skin Skin Exam: Dry, Intact, Normal Color, Warm - Additional Findings Additional findings: R groin cath insertion site with minimal erythema, and no drainage or fluctuance. Assessment and Plan - Assessment and Plan (Free Text) Assessment: 46 year old male with a past medical history significant for a 20 year pack smoking history with a family history of PR's presents with crushing chest pain , found to have STEMI, and taken to cardiac cath lab radiology technician for two HIRAM in Coronary Circumflex Artery. Plan: 1. STEMI of inf wall s/p cardiac cath (12/29) - cardiology recommending discharge pending AM labs on 01/02 - continue ASA, lipitor, plavix, cozaar and metoprolol - cont telemetry - tobacco cessation continues to be advised - will cont to f/u with cardiology as OP - heart healthy low cholesterol diet - cardiology following, appreciate all recs - cardiac cath with 2 HIRAM placed in CIRC - ECHO showed an EF of 55.4%, normal chamber size, normal LV systolic despite mild basal inferolateral hypokinesis and mild TR. - ECG showed NSR, left axis deviation, age indeterminate lateral and inferior- posterior infarcts. 2. Dyspnea - provided pt with incentive spirometer and instructions on its use - likely due to musculoskeletal chest tenderness; percocet added for pain 3. Anxiety - cont xanax PRN 4. Insomnia - acont mbien 10mg PRN 5. Nicotine Withdrawal -pt declines nicotine patch at this time, per cardiology - will cont to monitor 6. GI/DVT prophylaxis - protonix/scd's Patient seen and case discussed in detail with attending, Dr. Hooks. <Rebeca Hooks - Last Filed: 01/02/17 14:53> Objective - Vital Signs/Intake and Output Vital Signs (last 24 hours): Temp Pulse Resp BP Pulse Ox 98.8 F 87 20 111/70 93 L 01/02/17 05:49 01/02/17 10:00 01/02/17 05:49 01/02/17 09:32 01/02/17 05:49 Intake and Output: 01/02/17 01/02/17 06:59 18:59 Intake Total 880 Balance 880 - Labs Labs: 01/02/17 06:00 01/02/17 06:00 PT 11.0 Seconds (9.9-11.8) 12/29/16 16:40 INR 1.02 (0.93-1.08) 12/29/16 16:40 APTT 24.7 Seconds (23.7-30.8) 12/29/16 16:40 Attending/Attestation - Attestation I have personally seen and examined this patient.: Yes I have fully participated in the care of the patient.: Yes I have reviewed all pertinent clinical information, including history, physical exam and plan: Yes Notes (Text): 01/02/17 14:49 attending note; Patient seen and examined with resident. chest pain and shortness of breath resolved. Patient is afebrile and nontoxic. Tolerating diet. Ambulating fine. Patient is a 46-year-old admitted with acute ST elevation PR status post cardiac cath and stent placement. cardiology note reviewed. Started on Percocet. leukocytosis resolved. Continue Tylenol. Patient is aseptic and nontoxic. active smoking; smoking cessation is strongly advised. patient refused NicoDerm patch. follow-up with PMD in [place]. Follow-up with Cardiology DR. Black upon discharge. diagnosis; Acute ST elevation PR Status post thrombectomy/coronary stent placement active smoking Pleuritic chest pain 01/02/17 14:53
--- NOTE | 2017-01-01 17:17 | CARD ---
APPROVED REPORT EKG Measurement Heart [id number] [place] 140P-3 [id number] <Conclusion> Normal sinus rhythm Left axis deviation Voltage criteria for left ventricular hypertrophy Inferior-posterior infarct, age undetermined Anterolateral infarct, age undetermined Abnormal ECG
--- NOTE | 2017-01-01 23:22 | CARD ---
APPROVED REPORT EKG Measurement Heart [id number] [id number] <Conclusion> Normal sinus rhythm Left axis deviation Low voltage QRS Inferior-posterior infarct, age undetermined Lateral injury pattern ACUTE ND Abnormal ECG
[2017-01-01 23:55] VITALS: O2SAT 93
[2017-01-02 05:50] VITALS: TEMP 98.8
[2017-01-02 06:12] LABS: BASO # 0.01 K/mm3 (0.0-2.0); BASO % 0.1 % (0.0-3.0); EOS # 0.1 (0.0-0.7); EOS % 1.3 % (1.5-5.0); GRAN # 8.28 (1.4-6.5); GRAN % 74.1 % (50.0-68.0); HEMOGLOBIN 14.8 gm/dL (14.0-18.0); LYMPH # 1.6 (1.2-3.4); LYMPH % 14.1 % (22.0-35.0); MEAN CELL VOLUME 92.1 fL (80.0-105.0); MEAN CORPUSCULAR HEMOGLOBIN 32.5 pg (25.0-35.0); MEAN CORPUSCULAR HGB CONC 35.2 g/dl (31.0-37.0); MEAN PLATELET VOLUME 10.6 fl (7.0-11.0); MONO # 1.2 (0.1-0.6); MONO % 10.4 % (1.0-6.0); PLATELET COUNT 186 10^3/uL (120.0-450.0); RBC 4.56 10^6/uL (3.5-6.1); RED CELL DISTRIBUTION WIDTH 12.5 % (11.5-14.5); WHITE BLOOD COUNT 11.2 10^3/ul (4.5-11.0)
[2017-01-02 06:26] LABS: ALB/GLOB RATIO 1.3 (1.1-1.8); ALT/SGPT 77 U/L (7-56); AST/SGOT 69 U/L (15-59); BLOOD UREA NITROGEN 15 mg/dL (7-21); CALCIUM 9.4 mg/dL (8.4-10.5); GFR AFRICAN-AMERICAN > 60; GFR NON-AFRICAN AMERICAN > 60
[2017-01-02] MEDS: Pantoprazole 40 mg EC Tab PO SCH (07:01)
--- NOTE | 2017-01-02 07:55 | CP.PCM.PN ---
Subjective - Date & Time of Evaluation Date of Evaluation: 01/02/17 Time of Evaluation: 07:00 - Subjective Subjective: Stable on 2R. The CP is much improved: "95% better". Not pleuritic today. He can take deep breaths. V/S noted. RSR. PE: Lungs: clear Cor.: S1S2. No rub appreciated Abd.: soft Ext.: no edema Neuro.: alert labs noted. ECG's, echo and cines reviewed. Objective - Vital Signs/Intake and Output Vital Signs (last 24 hours): Temp Pulse Resp BP Pulse Ox 98.8 F 87 20 115/61 93 L 01/02/17 05:49 01/02/17 05:49 01/02/17 05:49 01/02/17 07:00 01/02/17 05:49 Intake and Output: 01/02/17 01/02/17 06:59 18:59 Intake Total 880 Balance 880 - Medications Medications: Current Medications Acetaminophen (Tylenol 325mg Tab) 650 mg PO Q6H PRN PRN Reason: Fever >100.4 F Last Admin: 01/01/17 21:52 Dose: 650 mg Alprazolam (Xanax) 0.25 mg PO BID PRN PRN Reason: Anxiety Stop: 01/05/17 18:13 Last Admin: 12/31/16 20:30 Dose: 0.25 mg Aspirin (Ecotrin) 81 mg PO DAILY [facility] Last Admin: 01/01/17 09:36 Dose: 81 mg Atorvastatin Calcium (Lipitor) 80 mg PO DIN [facility] Last Admin: 01/01/17 17:21 Dose: 80 mg Clopidogrel Bisulfate (Plavix) 75 mg PO DAILY [facility] Last Admin: 01/01/17 09:36 Dose: 75 mg Docusate Sodium (Colace) 100 mg PO BID [facility] Last Admin: 01/01/17 17:21 Dose: 100 mg Losartan Potassium (Cozaar) 25 mg PO DAILY [facility] Last Admin: 01/01/17 09:36 Dose: 25 mg Metoprolol Tartrate (Lopressor) 25 mg PO Q12H [facility] Last Admin: 01/02/17 07:00 Dose: 25 mg Oxycodone/Acetaminophen (Percocet 5/325 Mg Tab) 1 tab PO Q6H PRN PRN Reason: Pain, moderate (4-7) Stop: 01/03/17 16:03 Last Admin: 01/01/17 05:24 Dose: 1 tab Pantoprazole Sodium (Protonix Ec Tab) 40 mg PO 0600 AMBROSE Last Admin: 01/02/17 07:01 Dose: 40 mg Zolpidem Tartrate (Ambien) 10 mg PO HS PRN; Protocol PRN Reason: Insomnia Last Admin: 01/01/17 22:00 Dose: 10 mg - Labs Labs: 01/02/17 06:00 01/02/17 06:00 PT 11.0 Seconds (9.9-11.8) 12/29/16 16:40 INR 1.02 (0.93-1.08) 12/29/16 16:40 APTT 24.7 Seconds (23.7-30.8) 12/29/16 16:40 Assessment and Plan - Assessment and Plan (Free Text) Assessment: Acute CO with thrombosis of dom. C.A. S/P thrombectomy and PCI with HIRAM's x2 12/29/16 Smoker, now quitting FH of CAD Plan: Continue current cardiac meds. Plavix minimum one year, ASA 81/day, metoprolol ER 50/day, atorvastatin 40/day, losartan 25/day, Percocet PRN severe pain only. Smoking Cessation d/w him: He agrees. Declines tonny. patch at this time. Out-pt F/U with us in one week. Low sat. fat. diet d/w them. Cardiac Rehab to be arranged. Case D/W Dr. Hooks.
[2017-01-02] MEDS ORDERED: Metoprolol Succinate 50 mg XL Tab PO SCH (08:00)
[2017-01-02 09:33] VITALS: BP 111/70; PULSE 87
--- NOTE | 2017-01-07 09:56 | CP.PCM.DIS ---
<JESÚS MITCHELL - Last Filed: 01/07/17 09:52> Provider - Provider Date of Admission: 12/29/16 18:18 Attending physician: Rebeca Hooks MD Primary care physician: None Consults: Cardiology-Sukhdev Time Spent in preparation of Discharge (in minutes): 57 Hospital Course - Lab Results Lab Results: Most Recent Lab Values WBC 11.2 10^3/ul (4.5-11.0) H 01/02/17 06:00 RBC 4.56 10^6/uL (3.5-6.1) 01/02/17 06:00 Hgb 14.8 gm/dL (14.0-18.0) 01/02/17 06:00 Hct 42.0 % (42.0-52.0) 01/02/17 06:00 MCV 92.1 fL (80.0-105.0) 01/02/17 06:00 MCH 32.5 pg (25.0-35.0) 01/02/17 06:00 MCHC 35.2 g/dl (31.0-37.0) 01/02/17 06:00 RDW 12.5 % (11.5-14.5) 01/02/17 06:00 Plt Count 186 10^3/uL (120.0-450.0) 01/02/17 06:00 MPV 10.6 fl (7.0-11.0) 01/02/17 06:00 Gran % 74.1 % (50.0-68.0) H 01/02/17 06:00 Lymph % (Auto) 14.1 % (22.0-35.0) L 01/02/17 06:00 Henderson % (Auto) 10.4 % (1.0-6.0) H 01/02/17 06:00 Eos % (Auto) 1.3 % (1.5-5.0) L 01/02/17 06:00 Baso % (Auto) 0.1 % (0.0-3.0) 01/02/17 06:00 Gran # 8.28 (1.4-6.5) H 01/02/17 06:00 Lymph # 1.6 (1.2-3.4) 01/02/17 06:00 Henderson # 1.2 (0.1-0.6) H 01/02/17 06:00 Eos # 0.1 (0.0-0.7) 01/02/17 06:00 Baso # 0.01 K/mm3 (0.0-2.0) 01/02/17 06:00 PT 11.0 Seconds (9.9-11.8) 12/29/16 16:40 INR 1.02 (0.93-1.08) 12/29/16 16:40 APTT 24.7 Seconds (23.7-30.8) 12/29/16 16:40 Sodium 139 mmol/L (132-148) 01/02/17 06:00 Potassium 4.1 mmol/L (3.6-5.0) 01/02/17 06:00 Chloride 105 mmol/L (95-110) 01/02/17 06:00 Carbon Dioxide 23 mmol/L (21-33) 01/02/17 06:00 Anion Gap 15 (10-20) 01/02/17 06:00 BUN 15 mg/dL (7-21) 01/02/17 06:00 Creatinine 0.9 mg/dL (0.5-1.4) 01/02/17 06:00 Est GFR ( Amer) > 60 01/02/17 06:00 Est GFR (Non-Af Amer) > 60 01/02/17 06:00 Random Glucose 103 mg/dL (70-110) 01/02/17 06:00 Calcium 9.4 mg/dL (8.4-10.5) 01/02/17 06:00 Magnesium 1.7 mg/dL (1.7-2.2) 12/30/16 08:00 Total Bilirubin 1.2 mg/dL (0.2-1.3) 01/02/17 06:00 AST 69 U/L (15-59) H 01/02/17 06:00 ALT 77 U/L (7-56) H 01/02/17 06:00 Alkaline Phosphatase 84 U/L (38-133) 01/02/17 06:00 Lactate Dehydrogenase 1679 U/L (333-699) H 12/30/16 13:05 Total Creatine Kinase 2449 U/L (35-230) H 12/30/16 13:05 CK-MB (CK-2) 86.3 ng/mL (0.0-3.6) H 12/30/16 13:05 CK-MB (CK-2) % 3.5 % (2.5-3.0) H 12/30/16 13:05 Troponin I 17.40 ng/mL H* D 01/01/17 06:30 Total Protein 7.0 g/dL (5.8-8.3) 01/02/17 06:00 Albumin 4.0 g/dL (3.0-4.8) 01/02/17 06:00 Globulin 3.0 gm/dL 01/02/17 06:00 Albumin/Globulin Ratio 1.3 (1.1-1.8) 01/02/17 06:00 Triglycerides 316 mg/dL (35-160) H 12/30/16 08:00 Cholesterol 166 mg/dL (130-200) 12/30/16 08:00 LDL Cholesterol Direct 88 mg/dL (0-129) 12/30/16 08:00 HDL Cholesterol 31 mg/dL (29-60) 12/30/16 08:00 Procalcitonin 0.10 NG/ML (0.19-0.49) L 01/02/17 06:00 Blood Type A POSITIVE 12/29/16 16:40 Blood Type Confirm A POSITIVE 12/29/16 17:00 Antibody Screen Negative 12/29/16 16:40 BBK History Checked No verified bt 12/29/16 16:40 - Hospital Course Hospital Course: Mr. Butterfield is a 46 M with no significant pmh who presented to the ED with chest pain. An EKG was performed which showed a STEMI. Cardiology was consulted and patient was taken to cardiac laboratory veterinarian where two drug eluding stents were placed in the CIRC. Patient was started on ASA, Plavix, metoprolol and lipitor. Patient was given heparin for DVT prophylaxis. He was initially in the ICU and eventually transfered to a telemetry floor. After several days of clinical stability, he was discharged with instructions to have regular follow up with Dr. Santizo and to continue his newly prescribed medications. - Date & Time of H&P Date of H&P: 12/29/16 Time of H&P: 18:48 Discharge Exam - Head Exam Head Exam: NORMAL INSPECTION - Eye Exam Eye Exam: EOMI, Normal appearance - ENT Exam ENT Exam: Mucous Membranes Moist, Normal Exam - Neck Exam Neck exam: Full Rom - Respiratory Exam Respiratory Exam: Wheezes, NORMAL BREATHING PATTERN, UNREMARKABLE. absent: Rales, Rhonchi, Respiratory Distress, Stridor - Cardiovascular Exam Cardiovascular Exam: REGULAR RHYTHM, RRR, +S1, +S2. absent: Systolic Murmur - GI/Abdominal Exam GI & Abdominal Exam: Normal Bowel Sounds, Unremarkable. absent: Diminished Bowel Sounds, Distended, Firm, Mass, Tenderness - Extremities Exam Additional comments: No calf tenderness or pedal edema bilaterally - Back Exam Back exam: absent: CVA tenderness (L), CVA tenderness (R) - Neurological Exam Neurological exam: Alert, Normal Gait, Oriented x3 - Psychiatric Exam Psychiatric exam: Normal Affect, Normal Mood - Skin Skin Exam: Dry, Intact, Normal Color, Warm Discharge Plan - Discharge Medications Prescriptions: Aspirin [Ecotrin] 81 mg PO DAILY #30 Atorvastatin [Lipitor] 40 mg PO DAILY #30 tab Clopidogrel [Plavix] 75 mg PO DAILY #30 tab Losartan [Cozaar] 25 mg PO DAILY #30 tab Metoprolol Succinate XL [Toprol XL] 50 mg PO BRK #30 tab oxyCODONE/Acetaminophen [Percocet 5/325 mg Tab] 1 ea PO Q6 #6 tab - Follow Up Plan Condition: CRITICAL Disposition: HOME/ ROUTINE Instructions: Angina (DC), Myocardial Infarction (DC), Hypotension (DC), Bradycardia (DC), Heart Catheterization (DC) Additional Instructions: 1. If your symptoms persist or worsen, please seek emergency medical care. 2. Please follow up with your primary care doctor for a post hospital follow up visit within 7 days. 3. Please follow up with your business database analyst, Dr. Alvarado, within 7 days. Referrals: Ahmet Alvarado MD [Staff Provider] - <Rebeca Hooks - Last Filed: 01/07/17 10:51> Provider - Provider Date of Admission: 12/29/16 18:18 Attending physician: Rebeca Hooks MD Hospital Course - Lab Results Lab Results: Most Recent Lab Values WBC 11.2 10^3/ul (4.5-11.0) H 01/02/17 06:00 RBC 4.56 10^6/uL (3.5-6.1) 01/02/17 06:00 Hgb 14.8 gm/dL (14.0-18.0) 01/02/17 06:00 Hct 42.0 % (42.0-52.0) 01/02/17 06:00 MCV 92.1 fL (80.0-105.0) 01/02/17 06:00 MCH 32.5 pg (25.0-35.0) 01/02/17 06:00 MCHC 35.2 g/dl (31.0-37.0) 01/02/17 06:00 RDW 12.5 % (11.5-14.5) 01/02/17 06:00 Plt Count 186 10^3/uL (120.0-450.0) 01/02/17 06:00 MPV 10.6 fl (7.0-11.0) 01/02/17 06:00 Gran % 74.1 % (50.0-68.0) H 01/02/17 06:00 Lymph % (Auto) 14.1 % (22.0-35.0) L 01/02/17 06:00 Henderson % (Auto) 10.4 % (1.0-6.0) H 01/02/17 06:00 Eos % (Auto) 1.3 % (1.5-5.0) L 01/02/17 06:00 Baso % (Auto) 0.1 % (0.0-3.0) 01/02/17 06:00 Gran # 8.28 (1.4-6.5) H 01/02/17 06:00 Lymph # 1.6 (1.2-3.4) 01/02/17 06:00 Henderson # 1.2 (0.1-0.6) H 01/02/17 06:00 Eos # 0.1 (0.0-0.7) 01/02/17 06:00 Baso # 0.01 K/mm3 (0.0-2.0) 01/02/17 06:00 PT 11.0 Seconds (9.9-11.8) 12/29/16 16:40 INR 1.02 (0.93-1.08) 12/29/16 16:40 APTT 24.7 Seconds (23.7-30.8) 12/29/16 16:40 Sodium 139 mmol/L (132-148) 01/02/17 06:00 Potassium 4.1 mmol/L (3.6-5.0) 01/02/17 06:00 Chloride 105 mmol/L (95-110) 01/02/17 06:00 Carbon Dioxide 23 mmol/L (21-33) 01/02/17 06:00 Anion Gap 15 (10-20) 01/02/17 06:00 BUN 15 mg/dL (7-21) 01/02/17 06:00 Creatinine 0.9 mg/dL (0.5-1.4) 01/02/17 06:00 Est GFR ( Amer) > 60 01/02/17 06:00 Est GFR (Non-Af Amer) > 60 01/02/17 06:00 Random Glucose 103 mg/dL (70-110) 01/02/17 06:00 Calcium 9.4 mg/dL (8.4-10.5) 01/02/17 06:00 Magnesium 1.7 mg/dL (1.7-2.2) 12/30/16 08:00 Total Bilirubin 1.2 mg/dL (0.2-1.3) 01/02/17 06:00 AST 69 U/L (15-59) H 01/02/17 06:00 ALT 77 U/L (7-56) H 01/02/17 06:00 Alkaline Phosphatase 84 U/L (38-133) 01/02/17 06:00 Lactate Dehydrogenase 1679 U/L (333-699) H 12/30/16 13:05 Total Creatine Kinase 2449 U/L (35-230) H 12/30/16 13:05 CK-MB (CK-2) 86.3 ng/mL (0.0-3.6) H 12/30/16 13:05 CK-MB (CK-2) % 3.5 % (2.5-3.0) H 12/30/16 13:05 Troponin I 17.40 ng/mL H* D 01/01/17 06:30 Total Protein 7.0 g/dL (5.8-8.3) 01/02/17 06:00 Albumin 4.0 g/dL (3.0-4.8) 01/02/17 06:00 Globulin 3.0 gm/dL 01/02/17 06:00 Albumin/Globulin Ratio 1.3 (1.1-1.8) 01/02/17 06:00 Triglycerides 316 mg/dL (35-160) H 12/30/16 08:00 Cholesterol 166 mg/dL (130-200) 12/30/16 08:00 LDL Cholesterol Direct 88 mg/dL (0-129) 12/30/16 08:00 HDL Cholesterol 31 mg/dL (29-60) 12/30/16 08:00 Procalcitonin 0.10 NG/ML (0.19-0.49) L 01/02/17 06:00 Blood Type A POSITIVE 12/29/16 16:40 Blood Type Confirm A POSITIVE 12/29/16 17:00 Antibody Screen Negative 12/29/16 16:40 BBK History Checked No verified bt 12/29/16 16:40 Attending/Attestation - Attestation I have personally seen and examined this patient.: Yes I have fully participated in the care of the patient.: Yes I have reviewed all pertinent clinical information, including history, physical exam and plan: Yes Notes (Text): 01/07/17 10:51 attending note; Patient seen and examined with resident. chest pain and shortness of breath resolved. Patient is afebrile and nontoxic. Tolerating diet. Ambulating fine. Patient is a 46-year-old admitted with acute ST elevation VT status post cardiac cath and stent placement. active smoking; smoking cessation is strongly advised. patient refused NicoDerm patch. follow-up with PMD in [place]. Follow-up with Cardiology DR. Black upon discharge. medications given by [facility] pharmacy. diagnosis; Acute ST elevation VT Status post thrombectomy/coronary stent placement active smoking Pleuritic chest pain
== END 2017-01-02 11:15 | disposition home or self-care (01) | DRG 853 ==
LOC: ED 16:33 → CATH 16:50 → CCU 18:18 → 2RNO 12-31 12:17
PROVIDERS: ADMIT Internal Medicine; ATTEND Internal Medicine
PROC: 027135Z Dilation of Coronary Artery, Two Arteries with Two Drug-eluting Intraluminal Devices, Percutaneous Approach (ICD-10-PCS; principal; 2016-12-29)
PROC: 02C03ZZ Extirpation of Matter from Coronary Artery, One Artery, Percutaneous Approach (ICD-10-PCS; 2016-12-29)
PROC: 4A023N7 Measurement of Cardiac Sampling and Pressure, Left Heart, Percutaneous Approach (ICD-10-PCS; 2016-12-29)
PROC: B2111ZZ Fluoroscopy of Multiple Coronary Arteries using Low Osmolar Contrast (ICD-10-PCS; 2016-12-29)
PROC: B2151ZZ Fluoroscopy of Left Heart using Low Osmolar Contrast (ICD-10-PCS; 2016-12-29)
PROC: B41F1ZZ Fluoroscopy of Right Lower Extremity Arteries using Low Osmolar Contrast (ICD-10-PCS; 2016-12-29)
DX: I21.19 ST elevation (STEMI) myocardial infarction involving other coronary artery of inferior wall (principal); F17.213 Nicotine dependence, cigarettes, with withdrawal; E66.3 Overweight; F41.9 Anxiety disorder, unspecified; F17.210 Nicotine dependence, cigarettes, uncomplicated; Z82.49 Family history of ischemic heart disease and other diseases of the circulatory system; G47.00 Insomnia, unspecified; G47.33 Obstructive sleep apnea (adult) (pediatric); Z68.29 Body mass index [BMI] 29.0-29.9, adult